=== PATIENT | male | born 1960 | race Caucasian/White ===

== ENCOUNTER 2017-07-26 15:42 | Emergency (ER) | payer OTHER ==
[~2017-07-26 15:42] MED LIST: DRON400T4 PO; [UNRECOGNIZED DRUG - REMARK]
--- NOTE | 2017-07-26 15:47 | ER Report ---
History and Physical Time Seen By MD: 15:47 HPI/ROS CHIEF COMPLAINT: Possible dedication reaction HISTORY OF PRESENT ILLNESS: This is a 57-year-old male who presents to the emergency department for a possible medication reaction. Patient states that over the last year he has had intermittent atrial fibrillation, newly diagnosed. Patient states that he has seen his table tender sludge several times he tried a variety of medications most recently 1 week ago started on Flecainide, since then he's had intermittent shortness of breath with intermittent nausea. Patient states that today after taking the medications he became nauseous and started vomiting and since then has developed a headache, however it is not the worst headache he's had. He did call his table tender sludge who instructed him to come to the emergency department for a possible medication reaction. Patient states he has had chills today but no fevers he is aware of. No aches no rashes no chest pain. His table tender sludge did state that all of these are common side effects of Flecainide. REVIEW OF SYSTEMS: Constitutional: As above. Eyes: No discharge. ENT: No sore throat. Cardiovascular: No chest pain, no palpitations. Respiratory: As above. Gastrointestinal: As above. Genitourinary: No hematuria. Musculoskeletal: No back pain. Skin: No rashes. Neurological: As above. Allergies: Uncoded Allergies: MOLTAQ (Allergy, Mild, 07/26/17) Home Meds Active Scripts Metoprolol Tartrate (METOPROLOL TARTRATE) 25 Mg Tablet, 1 TAB PO BID for 15 Days , #30 TAB 0 Refills Prov:GAIL MAYNARD SUPERVISING PRODUCER-BC 07/26/17 Reported Medications Aspirin (ASPIRIN) 81 Mg Tab.chew, 81 MG PO QDAY, TAB.CHEW 07/26/17 Flecainide Acetate (FLECAINIDE ACETATE) 50 Mg Tablet, 50 MG PO BID 07/26/17 [trizonite] No Conflict Check, 150 MG 02/19/17 Discontinued Reported Medications Dronedarone Hcl (MULTAQ) 400 Mg Tablet, 400 MG PO BID 02/19/17 Past Medical/Surgical History Patient has a past medical and surgical history of intermittent A. fib, arthritis, osteoporosis, total hip replacement, left knee surgery, left elbow surgery, left shoulder surgery. Reviewed Nurses Notes: Yes Hx Substance Use Disorder: No Hx Alcohol Use: No Constitutional Vital Sign - Last 24 Hours 07/26/17 07/26/17 07/26/17 07/26/17 15:49 16:00 16:30 16:31 Temp 98.2 Pulse 93 88 87 Resp 18 12 11 B/P (MAP) 120/89 119/90 (100) 125/63 (83) Pulse Ox 93 91 96 O2 Delivery Room Air O2 Flow Rate 2.0 07/26/17 07/26/17 07/26/17 07/26/17 16:45 17:15 17:20 17:30 Pulse 88 Resp 21 B/P (MAP) 124/73 (90) 103/67 (79) 100/67 (78) Pulse Ox 98 07/26/17 07/26/17 07/26/17 07/26/17 17:45 17:50 18:00 18:10 Pulse 87 Resp 20 B/P (MAP) 106/72 (83) 109/79 (89) 87/64 (72) Pulse Ox 97 07/26/17 18:15 B/P (MAP) 98/62 (74) Intake and Output 07/26/17 07/26/17 07/27/17 15:00 23:00 07:00 Intake Total 1000 ml Balance 1000 ml Physical Exam General Appearance: The patient is alert, has no immediate need for airway protection and no signs of toxicity. Eyes: Pupils equal and round no pallor or injection. ENT, Mouth: Mucous membranes are moist. Respiratory: There are no retractions, lungs are clear to auscultation. Cardiovascular: Regular rate and rhythm, no murmurs, clicks or rubs. Gastrointestinal: Abdomen is soft with mild diffuse tenderness, no masses, bowel sounds normal. Neurological: Alert and oriented 4. Moving all extremities. No focal neuro deficits. Following all commands. Cranial nerves II through XII intact. Skin: Warm and dry, no rashes. Musculoskeletal: Neck is supple non tender. Extremities are nontender, nonswollen and have full range of motion. DIFFERENTIAL DIAGNOSIS: After history and physical exam differential diagnosis was considered for shortness of breath including but not limited to pulmonary infectious process, COPD, asthma, medication reaction, pulmonary embolus and congestive heart failure. Medical Decision Making Data Points Result Diagram: 07/26/17 1553 07/26/17 1553 Laboratory Hematology Test 07/26/17 15:53 Red Blood Count 5.78 M/uL (4.00-5.60) Mean Corpuscular Volume 85.5 fL (80.0-96.0) Mean Corpuscular Hemoglobin 29.4 pg (26.0-33.0) Mean Corpuscular Hemoglobin Concent 34.4 g/dL (32.0-36.0) Red Cell Distribution Width 14.0 % (11.5-14.5) Mean Platelet Volume 7.6 fL (7.2-11.1) Neutrophils (%) (Auto) 85.1 % (39.4-72.5) Lymphocytes (%) (Auto) 8.2 % (17.6-49.6) Monocytes (%) (Auto) 6.2 % (4.1-12.4) Eosinophils (%) (Auto) 0.2 % (0.4-6.7) Basophils (%) (Auto) 0.3 % (0.3-1.4) Nucleated RBC Relative Count (auto) 0.1 /100WBC Neutrophils # (Auto) 9.1 K/uL (2.0-7.4) Lymphocytes # (Auto) 0.9 K/uL (1.3-3.6) Monocytes # (Auto) 0.7 K/uL (0.3-1.0) Eosinophils # (Auto) 0.0 K/uL (0.0-0.5) Basophils # (Auto) 0.0 K/uL (0.0-0.1) Nucleated RBC Absolute Count (auto) 0.01 K/uL D-Dimer Quantitative (PE/DVT) 1.09 ug/ml (0-0.50) Sodium Level 140 mmol/L (137-145) Potassium Level 3.9 mmol/L (3.5-5.0) Chloride Level 102 mmol/L (98-107) Carbon Dioxide Level 24 mmol/L (22-30) Blood Urea Nitrogen 21 mg/dl (9-21) Creatinine 1.30 mg/dl (0.66-1.25) Glomerular Filtration Rate Calc 56.7 Random Glucose 135 mg/dl (75-110) Calcium Level 9.3 mg/dl (8.4-10.2) Total Bilirubin 0.7 mg/dl (0.2-1.3) Aspartate Amino Transf (AST/SGOT) 24 U/L (0-35) Alanine Aminotransferase (ALT/SGPT) 25 U/L (0-56) Alkaline Phosphatase 111 U/L (0-126) Troponin I < 0.012 ng/ml B-Type Natriuretic Peptide 5 pg/ml (0-100) Total Protein 7.5 gm/dl (6.3-8.2) Albumin 4.1 g/dl (3.5-5.0) Chemistry Test 07/26/17 15:53 White Blood Count 10.7 k/uL (4.5-11.0) Red Blood Count 5.78 M/uL (4.00-5.60) Hemoglobin 17.0 g/dL (14.0-18.0) Hematocrit 49.5 % (42.0-52.0) Mean Corpuscular Volume 85.5 fL (80.0-96.0) Mean Corpuscular Hemoglobin 29.4 pg (26.0-33.0) Mean Corpuscular Hemoglobin Concent 34.4 g/dL (32.0-36.0) Red Cell Distribution Width 14.0 % (11.5-14.5) Platelet Count 235 K/uL (150-450) Mean Platelet Volume 7.6 fL (7.2-11.1) Neutrophils (%) (Auto) 85.1 % (39.4-72.5) Lymphocytes (%) (Auto) 8.2 % (17.6-49.6) Monocytes (%) (Auto) 6.2 % (4.1-12.4) Eosinophils (%) (Auto) 0.2 % (0.4-6.7) Basophils (%) (Auto) 0.3 % (0.3-1.4) Nucleated RBC Relative Count (auto) 0.1 /100WBC Neutrophils # (Auto) 9.1 K/uL (2.0-7.4) Lymphocytes # (Auto) 0.9 K/uL (1.3-3.6) Monocytes # (Auto) 0.7 K/uL (0.3-1.0) Eosinophils # (Auto) 0.0 K/uL (0.0-0.5) Basophils # (Auto) 0.0 K/uL (0.0-0.1) Nucleated RBC Absolute Count (auto) 0.01 K/uL D-Dimer Quantitative (PE/DVT) 1.09 ug/ml (0-0.50) Glomerular Filtration Rate Calc 56.7 Calcium Level 9.3 mg/dl (8.4-10.2) Total Bilirubin 0.7 mg/dl (0.2-1.3) Aspartate Amino Transf (AST/SGOT) 24 U/L (0-35) Alanine Aminotransferase (ALT/SGPT) 25 U/L (0-56) Alkaline Phosphatase 111 U/L (0-126) Troponin I < 0.012 ng/ml B-Type Natriuretic Peptide 5 pg/ml (0-100) Total Protein 7.5 gm/dl (6.3-8.2) Albumin 4.1 g/dl (3.5-5.0) Coagulation Test 07/26/17 15:53 D-Dimer Quantitative (PE/DVT) 1.09 ug/ml EKG/Imaging EKG Interpretation 12 lead EKG: Time of EKG 1610. Rhythm: Normal sinus rhythm, ventricular rate 91 bpm. [place]: normal QRS: normal ST segments: No ST depression or elevation identified. Imaging 2 VIEWS CHEST INDICATION: Respiratory distress. COMPARISON: 02/19/2017. FINDINGS: Cardiomediastinal silhouette and pulmonary vessels within normal limits. There is no focal infiltrate or lobar consolidation. There is no pneumothorax or pleural effusion. No nodule. Upper abdomen is unremarkable. No acute bony abnormality. IMPRESSION: 1. No acute cardiopulmonary process. Report Dictated By: Danny Raymond at 07/26/2017 4:42 PM Report E-Signed By: Danny Raymond at 07/26/2017 4:44 PM WSN:[id number] ED Course/Re-evaluation Clinical Indication for ER IV: Hydration, IV Access ED Course The patient was admitted to room. A history of sore pain. Differential diagnoses were considered. An IV was started, a 1 liter normal saline bolus was given, 4mg IV Zofran x2, 4mg IV morphine. A CBC, CMP were obtained. CBC unremarkable, creatinine 1.3 with a GFR of 56. Negative two-view chest x-ray. Negative troponin, Negative BNP. EKG showing normal sinus rhythm. Patient's d- dimer was elevated at 1.09, I did discuss the results with the patient as noted below we did proceed with a CTA. CTA was negative. The patient was relieved with the results. I did instruct the patient to stop taking the Flecainide. I did restart the patient's Metoprolol 25 mg twice a day for his A-fib, the patient states this worked relatively well and he would rather restart the metoprolol instead of nothing at all and follow up with cardiology. The patient will call his table tender sludge on Saturday for a follow-up. Patient was also instructed to return to the emergency department for any other concerns or worsening symptoms. Patient had no questions or concerns at this time and was discharged home. Patient states he is feeling much better at the time of discharge. 07/26/2017 4:37:56 pm patient did have an elevated d-dimer, I did talk to the patient about CTA he is agreeable. Decision to Disposition Date: July 26, 2017 Decision to Disposition Time: 18:03 Depart Departure Latest Vital Signs Vital Signs Date Time Temp Pulse Resp B/P (MAP) Pulse Ox O2 Delivery O2 Flow Rate FiO2 07/26/17 18:15 98/62 (74) 07/26/17 17:50 87 20 97 07/26/17 16:31 2.0 07/26/17 15:49 98.2 Room Air Impression: Primary Impression: Medication reaction Condition: Improved Disposition: HOME OR SELF-CARE Referrals: CARDIOLOGY 5 Days New Scripts Metoprolol Tartrate (METOPROLOL TARTRATE) 25 Mg Tablet 1 TAB PO BID for 15 Days, #30 TAB 0 Refills Prov: GAIL MAYNARD-BC 07/26/17 Patient Instructions: A-fib (Atrial Fibrillation) (ED), Acute Headache (ED), Acute Nausea and Vomiting (ED) Additional Instructions: All of your lab studies are normal, chest xray is normal and you do not have a blood clot in your lungs. Drink plenty of water. Get plenty of rest. Stop taking the Flecainide. Restart your Metoprolol 25mg twice daily until you follow up with your table tender sludge. Call first thing Saturday morning to schedule a follow up appointment with cardiology. Return to the ED for any other concerns or worsening symptoms. Problem Qualifiers Primary Impression: Medication reaction Encounter type: initial encounter Qualified Codes: T88.7XXA - Unspecified adverse effect of drug or medicament, initial encounter GAIL MAYNARD SUPERVISING PRODUCER-BC July 26, 2017 15:47
[2017-07-26] MEDS ORDERED: FLEC50TA16 PO (15:53)
[2017-07-26] MEDS ORDERED: ASPI81TA94 PO (15:56)
[2017-07-26] MEDS ORDERED: ONDANSETRON 4 MG/2 ML VIAL IVP ONE ×2 (16:10→16:40)
[2017-07-26] MEDS ORDERED: NS(*) 0.9% 1000 ML BAG 1,000 ML IV ONE (16:10)
[2017-07-26 16:15] LABS: PLATELET COUNT, AUTOMATED 235 K/uL (150-450)
--- NOTE | 2017-07-26 16:15 | EKG ---
FAC[place] [facility] [place]IENT NAME: HYACINTH RANKIN : [id number] MR: [id number] V: [id number] EXAM DATE: ORDERING PHYSICIAN: GAIL MAYNARD TECHNOLOGIST: MIMA Test Reason : NAUSEA Blood Pressure : / mmHG Vent. Rate : 091 BPM Atrial Rate : 091 BPM P-R Int : 156 ms QRS Dur : 092 ms QT Int : 370 ms P-R-T Axes : 018 -05 026 degrees QTc Int : 455 ms Normal sinus rhythm T flattening consistent with inferior ischemia vs normal variant When compared with ECG of 19-FEB-2017 11:24, T wave amplitude has decreased in Anterolateral leads T flattening now in aVF Confirmed by MASSIEL OREILLY ([id number]) on 07/26/2017 6:20:42 PM Referred By: JUAN DIEGO Confirmed By:MASSIEL OREILLY
[2017-07-26] MEDS ORDERED: MORPHINE 4 MG/ML SDV IVP ONE (16:40)
[2017-07-26] MEDS ORDERED: IOPAMIDOL 76% 100 ML INFUS BTL 100 ML ONE (16:47)
[2017-07-26] MEDS ORDERED: NS 0.9% 150 ML BAG 150 ML ONE (16:47)
--- NOTE | 2017-07-26 16:48 | RADIOLOGY IMAGING REPORT ---
[facility] PATIENT NAME: Maulik Barraza : 1960 MR: [id number] V: [id number] EXAM DATE: ORDERING PHYSICIAN: GAIL MAYNARD TECHNOLOGIST: Location: [facility] - [place] Patient: Maulik Barraza : 1960 Visit/Account:[id number] Date of Sevice: 07/26/2017 2 VIEWS CHEST INDICATION: Respiratory distress. COMPARISON: 02/19/2017. FINDINGS: Cardiomediastinal silhouette and pulmonary vessels within normal limits. There is no focal infiltrate or lobar consolidation. There is no pneumothorax or pleural effusion. No nodule. Upper abdomen is unremarkable. No acute bony abnormality. IMPRESSION: 1. No acute cardiopulmonary process. Report Dictated By: Danny Raymond at 07/26/2017 4:42 PM Report E-Signed By: Danny Raymond at 07/26/2017 4:44 PM WSN:[id number]
--- NOTE | 2017-07-26 17:41 | RADIOLOGY IMAGING REPORT ---
FACILITY: [facility] PATIENT NAME: Maulik Barraza : 1960 MR: [id number] V: [id number] EXAM DATE: ORDERING PHYSICIAN: GAIL MAYNARD TECHNOLOGIST: Location: [facility] Patient: Maulik Barraza : 1960 Visit/Account:[id number] Date of Sevice: 07/26/2017 CT ANGIOGRAM OF THE CHEST WITH INTRAVENOUS CONTRAST, PE PROTOCOL DATE OF EXAM: 07/26/2017 16:37 COMPARISON: Chest radiograph of the same day. INDICATION: short of breath, elevated dimer. TECHNIQUE: Contrast enhanced chest CT performed during the injection of 80 ml of Isovue-370. Three-d imensional (MIP) reconstructions were performed. FINDINGS: There is no pulmonary arterial filling defect. Thyroid: Not well imaged. Thoracic inlet: No adenopathy. Heart and great vessels: Heart size is normal. Mediastinum and kady: No adenopathy. Lungs and pleura: Mild dependent atelectasis. Breast and axilla: Breast tissue is unremarkable by CT. Bones and soft tissues: No acute osseous abnormality. There are several old left-sided rib fractures . Upper abdomen: Unremarkable. IMPRESSION: 1. Negative for pulmonary arterial embolus. One of the following dose optimization techniques was utilized in the performance of this exam: Autom ated exposure control; adjustment of the mA and/or kV according to the patient's size; or use of an i terative reconstruction technique. Specific details can be referenced in the facility's radiology C T exam operational policy. Report Dictated By: Danny Oliver MD at 07/26/2017 5:21 PM Report E-Signed By: Danny Oliver MD at 07/26/2017 5:36 PM WSN:[id number]
[2017-07-26] MEDS ORDERED: METO25TA93 PO (18:07)
[2017-07-26 18:15] VITALS: BP 98/62
== END 2017-07-26 18:20 | disposition home or self-care (01) ==
LOC: ER 15:44
DX: T88.7XXA Unspecified adverse effect of drug or medicament, initial encounter (principal)
CPT/HCPCS: 71046; 71275; 83880; 84484; 85025; 85379; 93005; 96361; 96374; 96375; 99283; J2270; J2405; J7030; Q9967; 82040; 82247; 82310; 82374; 82435; 82565; 82947; 84075; 84132; 84155; 84295; 84450; 84460; 84520